=== PATIENT | male | born 1985 | race African-American/Black ===

== ENCOUNTER 2017-11-11 17:59 | Emergency (ER) | payer OTHER ==
[~2017-11-11] VITALS: Ht 177.8 cm; Wt 117.9 kg
[~2017-11-11 17:59] MED LIST: HYDACE5 PO; IBUP800 PO; NAPR500 PO; Naprosyn500 MG PO
== END 2017-11-11 19:27 | disposition home or self-care (01) ==
LOC: ER 17:59
DX: R60.0 Localized edema (principal); L23.7 Allergic contact dermatitis due to plants, except food; F17.210 Nicotine dependence, cigarettes, uncomplicated
CPT/HCPCS: 93971; 99284-25

== ENCOUNTER 2018-12-20 17:10 | Emergency (ER) | payer OTHER ==
[~2018-12-20] VITALS: Ht 180.3 cm; Wt 90.7 kg
[2018-12-20] MEDS ORDERED: CEPH500 PO (19:23)
== END 2018-12-20 19:34 | disposition home or self-care (01) ==
LOC: ER 17:10
DX: S51.811A Laceration without foreign body of right forearm, initial encounter (principal); F17.200 Nicotine dependence, unspecified, uncomplicated; X99.1XXA Assault by knife, initial encounter
CPT/HCPCS: 12002; 73090; 99283-25

== ENCOUNTER 2024-10-15 02:35 | Emergency (ER) | payer OTHER ==
[~2024-10-15] VITALS: Ht 177.8 cm; Wt 117.9 kg
[~2024-10-15 02:35] MED LIST changes: +CEPH500 PO
[2024-10-15 03:47] LABS: BASOPHILS ABSOLUTE AUTO 0.07 K/mm3 (0.00-0.23); BASOPHILS PERCENT AUTO 1 % (0-2); EOSINOPHILS ABSOLUTE AUTO 0.38 K/mm3 (0.00-0.68); EOSINOPHILS PERCENT AUTO 3 % (0-6); Hematocrit 43.4 % (37.0-53.0); Hemoglobin 15.1 g/dL (13.5-17.5); IMMATURE GRAN ABSOLUTE AUTO 0.08 K/mm3 (0.00-0.10); IMMATURE GRAN PERCENT AUTO 1 % (0-1); LYMPHOCYTES ABSOLUTE AUTO 4.50 K/mm3 (0.84-5.20); LYMPHOCYTES PERCENT AUTO 32 % (21-46); MONOCYTES ABSOLUTE AUTO 1.60 K/mm3 (0.16-1.47); MONOCYTES PERCENT AUTO 11 % (4-13); Mean Corpuscular HGB Conc 34.8 g/dL (31.5-36.5); Mean Corpuscular Volume 86 fL (80-100); NEUTROPHILS ABSOLUTE AUTO 7.47 K/mm3 (1.96-9.15); NEUTROPHILS PERCENT AUTO 53 % (41-73); NRBC ABSOLUTE 0.00 K/mm3 (0.00-0.02); NRBC Auto 0.0 /100 WBC (0.0-0.2); Platelet Count 353 K/mm3 (150-400); RDW Coefficient Variation 12.9 % (11.7-14.2); RDW Standard Deviation 40.1 fL (35.1-46.3)
[2024-10-15 04:29] LABS: Alanine Aminotransfer (ALT/SGP 38.0 U/L (12-78); Albumin, Blood 3.5 g/dL (3.4-5.0); Albumin/Globulin Ratio 0.9 (0.8-1.8); Anion Gap 7.0 mmol/L (3-11); Aspartate Aminotrans (AST/SGOT 17.0 U/L (12-37); Bilirubin, Total 0.4 mg/dL (0.1-1.0); Blood Urea Nitrogen 14.0 mg/dL (8-24); CO2, Blood 28.0 mmol/L (21-32); Calcium, Blood 8.4 mg/dL (8.5-10.1); Chloride, Blood 108.0 mmol/L (98-108); Creatinine, Blood 1.13 mg/dL (0.60-1.20); Globulin, Blood 4.0 g/dL (2.2-4.0); Glucose, Blood 97.0 mg/dL (70-99); Potassium, Blood 3.9 mmol/L (3.5-5.5); Sodium, Blood 139.0 mmol/L (136-145); Total Protein, Blood 7.5 g/dL (6.4-8.2)
[2024-10-15] MEDS ORDERED: Clindamycin 900mg in D5W 50ML 50 ML IV ONE (06:05)
[2024-10-15] MEDS ORDERED: CLIN300 PO (08:18)
[2024-10-15 08:25] VITALS: BP 125/93
== END 2024-10-15 08:28 | disposition home or self-care (01) ==
LOC: ER 02:35
PROVIDERS: Emergency Medicine
DX: L03.116 Cellulitis of left lower limb (principal); F17.200 Nicotine dependence, unspecified, uncomplicated
CPT/HCPCS: 73590; 73701; 80053; 83605; 85025; 93971; 96365-59; 99284-25; Q9967

== ENCOUNTER → 2024-11-02 | Outpatient (CLI) | payer OTHER ==
[~2024-11-02] MED LIST changes: +CLIN300 PO
== END | disposition home or self-care (01) ==
LOC: LAB 17:25 → LAB SHORT 17:25
DX: R07.89 Other chest pain (principal)
CPT/HCPCS: 83880; 84484